=== PATIENT | male | born 1990 | race African-American/Black ===

== ENCOUNTER 2019-06-22 23:15 | Inpatient (IN) | payer BC, OTHER ==
[2019-06-23 00:56] LABS: ABS Eosinophils 0.1 10^3/ul (0-0.6); ABS Lymphocytes 2.5 10^3/ul (1.0-4.8); ABS Monocytes 0.9 10^3/ul (0-0.8); ABS Neutrophils 3.8 10^3/ul (1.5-7.7); Eosinophil % 1.7 %; Hematocrit 42 % (42-52); Hemoglobin 14.3 g/dL (14.0-18.0); Lymphocyte % 33.9 %; Mean Corpuscular HGB Conc 34 g/dL (31-36); Mean Corpuscular Hemoglobin 26 pg (27-31); Mean Corpuscular Volume 78 fL (80-94); Mean Platelet Volume 7.5 fL (7.4-10.4); Nucleated Red Blood Cells % 0.1; Platelet Count 294 10^3/uL (150-450); Red Blood Count 5.42 10^6 /uL (4.18-5.48); Red Cell Distribution Width 14 % (10-15); White Blood Count 7.5 10^3/uL (3.5-10.8)
[2019-06-23 01:14] LABS: ALT 21 U/L (7-52); AST 31 U/L (13-39); Albumin 3.9 g/dL (3.2-5.2); Albumin/Globulin Ratio 1.5 (1-3); Alkaline Phosphatase 73 U/L (34-104); Anion Gap 7 mmol/L (2-11); BUN/Creatinine Ratio 19.6 (8-20); Blood Urea Nitrogen 21 mg/dL (6-24); CO2 Carbon Dioxide 25 mmol/L (22-32); Chloride 105 mmol/L (101-111); EGFR African American 99.6 (>60); EGFR Non-African American 82.3 (>60); Globulin 2.6 g/dL (2-4); Glucose 82 mg/dL (70-100); Potassium 4.1 mmol/L (3.5-5.0); Sodium 137 mmol/L (135-145); Total Protein 6.5 g/dL (6.4-8.9)
--- NOTE | 2019-06-23 01:40 | ED ---
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 He states that he is having issues and a mental health crisis. He mentions that he has a history of undiagnosed depression and that he has slit his wrists in the past. Pain severity is rated 0/10. No aggravating or alleviating factors noted. He also denies fever. He uses EtOH and marijuana occasionally. He has no other medical Hx. - History Of Current Complaint Chief Complaint: EDSuicidal Time Seen by Provider: 06/22/19 23:24 Hx Obtained From: Patient Onset/Duration: Sudden Onset, Lasting Days, Still Present Timing: Constant Severity Initially: Moderate Severity Currently: Moderate Aggravating Factor(s): Nothing Alleviating Factor(s): Nothing Associated Signs And Symptoms: Positive: Negative - fever Has Suicidal: Reports: Thoughts. Denies: With A Plan - Allergies/Home Medications Allergies/Adverse Reactions: Allergies Allergy/AdvReac Type Severity Reaction Status Date / Time No Known Allergies Allergy Verified 08/25/14 11:12 PMH/Surg Hx/FS Hx/Imm Hx Endocrine/Hematology History: Denies: Hx Diabetes Cardiovascular History: Denies: Hx Hypercholesterolemia, Hx Hypertension Sensory History: Denies: Hx Legally Blind, Hx Deafness Opthamlomology History: Denies: Hx Legally Blind EENT History: Denies: Hx Deafness - Surgical History Surgical History: None Surgery Procedure, Year, and Place: none Infectious Disease History: No Infectious Disease History: Denies: Traveled Outside the [place] in Last 30 Days - Family History Known Family History: Negative: Renal Disease - Social History Alcohol Use: Occasionally Hx Substance Use: Yes Substance Use Type: Reports: Marijuana Smoking Status (MU): Never Smoked Tobacco Review of Systems Negative: Fever Psychological: Other - pos - SI All Other Systems Reviewed And Are Negative: Yes Physical Exam - Summary Physical Exam Summary: General: Well-developed, Well-nourished male. No acute distress. HEENT: Normocephalic, Atraumatic. Eyes: Conjuctiva normal, PERRL. Ears: TMs within normal limits. Nares: (-) discharge, (-) erythema. Oropharynx: Clear, mucous membranes moist, (-) exudates. Neck: Soft, FROM, (-) lymphadenopathy, (-) thyromegaly, (-) JVD. Cardiovascular: Normal sinus rhythm, (-) murmur. Lungs: Clear to auscultation bilaterally (-) wheezes, (-) rales, (-) rhonchi. Abdomen: Soft, non-tender, non-distended, (-) organomegaly, normal bowel sounds. Back: (-) CVA tenderness Extremities: No edema. Skin: Warm, dry, (-) rash. Neuro: Alert and oriented x3, no focal deficits. Psychiatric: Mood normal, affect flat, slowed speech. Triage Information Reviewed: Yes Vital Signs On Initial Exam: Initial Vitals Temp Pulse Resp BP Pulse Ox 98.5 F 54 18 127/95 98 06/22/19 23:16 06/22/19 23:16 06/22/19 23:16 06/22/19 23:16 06/22/19 23:16 Vital Signs Reviewed: Yes Diagnostics - Vital Signs Vital Signs Temp Pulse Resp BP Pulse Ox 06/22/19 23:16 98.5 F 54 18 127/95 98 - Laboratory Lab Results: Lab Results 06/23/19 06/23/19 Range/Units 00:51 00:51 WBC 7.5 (3.5-10.8) 10^3/uL RBC 5.42 (4.18-5.48) 10^6 /uL Hgb 14.3 (14.0-18.0) g/dL Hct 42 (42-52) % MCV 78 L (80-94) fL MCH 26 L (27-31) pg MCHC 34 (31-36) g/dL RDW 14 (10-15) % Plt Count 294 (150-450) 10^3/uL MPV 7.5 (7.4-10.4) fL Neut % (Auto) 51.3 % Lymph % (Auto) 33.9 % [place] % (Auto) 12.6 % Eos % (Auto) 1.7 % Baso % (Auto) 0.5 % Absolute Neuts (auto) 3.8 (1.5-7.7) 10^3/ul Absolute Lymphs (auto) 2.5 (1.0-4.8) 10^3/ul Absolute Monos (auto) 0.9 H (0-0.8) 10^3/ul Absolute Eos (auto) 0.1 (0-0.6) 10^3/ul Absolute Basos (auto) 0.0 (0-0.2) 10^3/ul Absolute Nucleated RBC 0.0 10^3/ul Nucleated RBC % 0.1 Sodium 137 (135-145) mmol/L Potassium 4.1 (3.5-5.0) mmol/L Chloride 105 (101-111) mmol/L Carbon Dioxide 25 (22-32) mmol/L Anion Gap 7 (2-11) mmol/L BUN 21 (6-24) mg/dL Creatinine 1.07 (0.67-1.17) mg/dL Est GFR ( Amer) 99.6 (>60) Est GFR (Non-Af Amer) 82.3 (>60) BUN/Creatinine Ratio 19.6 (8-20) Glucose 82 (70-100) mg/dL Calcium 9.0 (8.6-10.3) mg/dL Total Bilirubin 0.40 (0.2-1.0) mg/dL AST 31 (13-39) U/L ALT 21 (7-52) U/L Alkaline Phosphatase 73 (34-104) U/L Total Protein 6.5 (6.4-8.9) g/dL Albumin 3.9 (3.2-5.2) g/dL Globulin 2.6 (2-4) g/dL Albumin/Globulin Ratio 1.5 (1-3) TSH Pending Salicylates Pending Acetaminophen Pending Serum Alcohol Pending Result Diagrams: 06/23/19 00:51 06/23/19 00:51 Lab Statement: Any lab studies that have been ordered have been reviewed, and results considered in the medical decision making process. 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 No test or imaging results to report. Final Dx are depression and SI. Pt will be a sign out to Dr. Macdonald pending MHE and disposition. - Differential Dx/Clinical Impression Provider Diagnosis: Suicidal ideation, Depression Discharge ED - Sign-Out/Discharge Documenting (check all that apply): Sign-Out Patient Signing out patient TO: Melissa Macdonald Patient Received Moderate/Deep Sedation with Procedure: No - Discharge Plan Referrals: No Primary Care Phys,NOPCP [Primary Care Provider] - - Attestation Statements Document Initiated by Scribe: Yes Documenting Scribe: Jason Mercedes Provider For Whom Scribe is Documenting (Include Credential): Antonina May MD Scribe Attestation: I, Jason Mercedes, scribed for Antonina May MD on 06/23/19 at 0611. Scribe Documentation Reviewed: Yes Provider Attestation: The documentation as recorded by the scribe, Jason Mercedes accurately reflects the service I personally performed and the decisions made by me, Antonina May MD Status of Scribe Document: Viewed
[2019-06-23 01:48] LABS: Acetaminophen < 15 mcg/mL; Alcohol < 10 mg/dL (<10); Salicylate < 2.50 mg/dL (<30)
[2019-06-23 02:03] LABS: TSH (Thyroid Stimulating Horm) 1.79 mcIU/mL (0.34-5.60)
--- NOTE | 2019-06-23 07:13 | ED ---
Progress - Progress Note Progress Note: This pt is a sign out from Dr. May to Dr. Macdonald at shift change 0700 06/23 pending a MHE and disposition. - Consult/PCP Time Called: 00:45 Course/Dx - Course Course Of Treatment: This pt is a sign out from Dr. May to Dr. Macdonald at shift change 0700 06/23/19 pending a MHE and disposition. - Diagnoses Provider Diagnoses: Major depressive disorder, recurrent, unspecified - Provider Notifications Discussed Care Of Patient With: Lilian Felder Time Discussed With Above Provider: 14:16 Instructed by Provider To: Admit As Inpatient - involuntary Admit/Transition Orders Completed By ED Provider: Yes Discharge ED - Sign-Out/Discharge Documenting (check all that apply): Patient Departure - admitted to [facility] psych, involuntary Patient Received Moderate/Deep Sedation with Procedure: No - Discharge Plan Condition: Stable Disposition: PSYCHIATRIC FACILITY-[facility] Referrals: No Primary Care Phys,NOPCP [Primary Care Provider] - - Billing Disposition and Condition Condition: STABLE Disposition: Psychiatric Facility [facility] - Attestation Statements Document Initiated by Scribe: Yes Documenting Scribe: Gio Up Provider For Whom Scribe is Documenting (Include Credential): Melissa Macdonald MD Scribe Attestation: I, Gio Up, scribed for Melissa Macdonald MD on 06/23/19 at 1425. Scribe Documentation Reviewed: Yes Provider Attestation: The documentation as recorded by the Gio anders accurately reflects the service I personally performed and the decisions made by tx, Melissa Macdonald MD Status of Scribe Document: Viewed
[2019-06-23 15:51] LABS: Urine Appearance Cloudy; Urine Bilirubin Negative (Negative); Urine Blood Negative (Negative); Urine Color Yellow; Urine Glucose Negative (Negative); Urine Ketones Negative (Negative); Urine Nitrite Negative (Negative); Urine Protein Negative (Negative); Urine Specific Gravity 1.016 (1.010-1.030); Urine Urobilinogen Negative (Negative)
[2019-06-23 16:15] LABS: Urine Benzodiazepine Screen None Detected (None Detect); Urine Opiates Screen None Detected (None Detect)
[2019-06-23] MEDS ORDERED: Al Hydrox/Mg Hydrox/Simet LIQ* 30 ML UDC PO PRN (22:51)
[2019-06-23] MEDS ORDERED: Acetaminophen TAB* 325 MG PO PRN (22:51)
[2019-06-24 09:28] LABS: HDL Cholesterol 53.8 mg/dL
[2019-06-24] MEDS: Vitamin THERAPEUTIC TAB PO SCH (10:09)
--- NOTE | 2019-06-24 18:41 | HP ---
HISTORY AND PHYSICAL: DATE OF ADMISSION: 06/23/19 SUPERVISING PSYCHIATRIST: Dr. Yg Haynes.* (DICTATED BY ROHIT LIRIANO NP) JUSTIFICATION FOR ADMISSION: The patient presented to the emergency department with suicidal ideation and with plan to strangle self. The patient merits hospitalization for immediate safety and stabilization. CHIEF COMPLAINT: "I've been struggling with depression." HISTORY OF PRESENT ILLNESS: Nuvia is a 28-year-old male with one prior psychiatric hospitalization at [facility], who presented to the emergency department with depressed mood, suicidal ideation, and preparation for asphyxiation. The patient is domiciled, employed full-time and lives with his girlfriend of 3-1/2 years and her 3 children. The patient reports that he has been increasingly depressed and often has thoughts of suiciding. 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 He states that he was recently honest with his girlfriend that he has been watching pornography and masturbating daily. He states that he has regret afterwards. He reports that his partner refers to pornography as exploitation and does not agree with him using this media. The patient states that he masturbates once a day. Denies any other compulsions or paraphilic behaviors. He reports that he has been working over a 50-hour work week and that this is highly stressful. He states that juggling a career and being a part of the current family unit that he is in impacts his ability to sleep a full night. He states that he has been only sleeping 4 to 5 hours a night. He states that he has lots of aspirations and projects that he has not been able to attend to recently and endorses anhedonia. He denies change in appetite. He denies panic or eating disorder behaviors. The patient reports a recent stressor of finding out who his biological father was and reached out to him on Facebook as he found out that he had half-siblings. His biological father who from the patient's mother when the patient was 2 lives in [place] and did not accept the patient's Facebook friend request. The patient states that he and his father had minimal interaction and was dismissive of Nuvia's efforts to be in contact with his father or any other parts of his family. According to information from the emergency room, the patient's girlfriend was interviewed separately. She reports that his mother is very critical of him. Apparently, the patient's mother and girlfriend both each other as controlling. The patient reports recently taking Alexander wort along with B complex and magnesium vitamins. He is receptive to information that Hood wort is contraindicated for most psychiatric reasons including poor interactions with antidepressants. PAST PSYCHIATRIC HISTORY: The patient was hospitalized in January of 2011 while he was a student at [employer]. At that time, he presented with selective mutism and was found unresponsive by emergency services. He presented with somewhat of dissociative experiences. The patient was started on citalopram and referred to [facility] by [facility]. The patient saw Dr. Keven Bhatia and a psychologist at [employer]. The patient states he stopped citalopram after a couple months as he did not feel that he needed it. The patient went to a psychologist, Dr. Salina Espinoza, approximately 1 month ago. He states that he went for consultation as his girlfriend was concerned about autism spectrum disorder, but this was ruled out. The patient and his girlfriend are in couples counseling with [facility]. TRAUMA/ABUSE HISTORY: The patient denies history of abuse. He states that he and his mother are currently estranged because she does not approve of Chencho. The patient states that when he was younger his mother asked if he knew how to kiss girls and offered that he practice on her. The patient states he did not do so and this was never brought up again. The patient denies other trauma or abuse. SUBSTANCE USE HISTORY: The patient reports recent daily use of marijuana tincture made with 100% alcohol. He reports this was given to him by a friend approx 2 weeks ago. His urine drug screen is positive for cannabinoids. He denies any other substance use. PAST MEDICAL HISTORY: No active medical problems. PAST SURGICAL HISTORY: The patient denies surgical history. CURRENT MEDICATIONS: None. ALLERGIES: No known drug allergies. PRIMARY CARE PROVIDER: [facility]. FAMILY PSYCHIATRIC HISTORY: The patient reports his mother has neurotic tendencies and she has a boyfriend who is verbally condescending and demeaning. The patient denies knowledge of other psychiatric illnesses or suicide. SOCIAL HISTORY: The patient is the only child of his mother and father who when he was 2. He was raised by his mother. He was born in [place] and raised there until he was 6 when he and his mother moved to [place], [place]. He attended [employer] after high school graduation and graduated in 2011 with a BS in interdisciplinary studies, music and applied economics. The patient and his girlfriend who is 40 years old and has 3 children ages 13, 10 and 6 have been together for 3-1/2 years. 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 He identifies as heterosexual. He denies legal history or history. He reports exercising daily at the gym. REVIEW OF SYSTEMS: Constitutional: Negative. No fever, chills, or fatigue. ENT: Negative. Cardiovascular: Negative. Denies chest pain or palpitations. Respiratory: Negative. Denies shortness of breath or cough. Genitourinary: Negative. Musculoskeletal: Negative. Neurological: Negative. PHYSICAL EXAMINATION GENERAL: The patient is well appearing and well nourished. VITAL SIGNS: Height 5 feet 10 inches, weight 165 pounds. T 98.4, P 59, RR 14, O2 sat 99%, BP 120/82. HEENT: Head and face: Normal head and face inspection. Eyes: Positive EOMI. PERRLA. Conjunctivae clear. NECK: Supple. Full ROM. Trachea midline. RESPIRATORY: Lung sounds clear to auscultation, breath sounds present. CARDIOVASCULAR: Heart RRR. Pulses are symmetrical in both upper and lower extremities. MUSCULOSKELETAL: Normal strength. ROM intact. NEUROLOGICAL: Normal sensory and motor intact. Alert and oriented x3, with normal gait. Cerebellar function intact. SKIN: Warm and dry. Color reflects adequate perfusion. LABORATORY DATA: CBC generally unremarkable. Chemistry within normal limits. Hemoglobin A1c 5.2. Lipid panel within normal limits. TSH normal at 1.79. Urinalysis within normal limits. Toxicology negative for salicylates, acetaminophen, or alcohol. Urine drug screen positive for cannabinoids. MENTAL STATUS EXAM: Nuvia is a 28-year-old male with muscular build, who appears stated age. He is wearing blue hospital scrubs. ADLs are completed. He has ungroomed facial hair. He is alert and oriented x3. He is cooperative and pleasant. Eye contact is good. Speech is soft, articulate, and spontaneous. Concentration is good. Memory is 3/3. Mood is dysphoric with constricted affect. Mild psychomotor retardation noted. Thought process is circumstantial, logical. Thought content is positive for suicidal ideation. He denies HI or . The patient denies auditory or visual hallucinations. There are no perceptual disturbances noted. Insight and judgment are poor. Fund of knowledge is adequate. Intellect appears to be average by virtue of vocabulary and educational attainment. DIAGNOSES: 1. Unspecified depressive disorder. 2. Rule out adjustment disorder. ASSESSMENT: Nuvia is a 28-year-old male, domiciled, employed , with one prior psychiatric hospitalization, who presented to the emergency department with his girlfriend due to depressed mood and suicidal ideation. The patient has stressors regarding his employment obligations and relationship obligations. Both his mother and his romantic partner are pining for his loyalty. He reached out to his father via social media and was rejected recently. He reports guilt in regards to daily masturbation habit. He reports history of citalopram with untoward effects and is agreeable to trial escitalopram. PLAN: The patient is admitted to adult behavioral services unit on involuntary status. Code status is full. He is placed on 15-minute checks for safety. He is already participating in supportive milieu, individual sessions with staff, and psychoeducational groups. We will trial Lexapro and obtain collateral from the patient's current counselor and recent psychologist consultation. Estimated length of stay is 3 to 5 days. Discharge planning will include family involvement and above providers as well as referrals for individual counseling. ROHIT LIRIANO NP [id number]/CPS #: [id number] CLINT
[2019-06-24] MEDS ORDERED: Escitalopram * 5 MG TAB PO SCH (21:00)
[2019-06-25 10:34] VITALS: BP 139/71
--- NOTE | 2019-06-25 10:46 | DCNOTE ---
Subjective - Subjective Service Types: 56950 Hosp DC Day Mgmt simple under 30 min Discharge Date: 06/25/19 Subjective: Patient is reading AA literature upon approach. He states he plans to avoid substances and attributes recent odd thinking and behavior to using MJ tincture given to him by a friend. He states his friend visited last evening and Remanu told him he is no longer planning to utilize the tincture. Patient denies SI or passive wish. He reports feeling clausterphobic in the BSU. He reports readiness for discharge. telegraphic typewriter mechanic spoke with patient's girlfriend, Chencho at [phone]. She reports concern that patient has underlying bipolar disorder and that he is not forthcoming with information. We discussed likelihood that we are not seeing symptoms of bipolarity currently but formal diagnosing of bipolar could be ongoing. Marking Machine Tender shared that symptoms are likely related to anxiety, internal and interpersonal conflicts. VM left for PCP to inquire about continuing SSRI. Objective - General Observations Appearance: Well Groomed Stature: WNL Posture: WNL Eye Contact: Average Behavior/Activity: WNL - Interaction Observations Attitude Towards Examiner: Cooperative Stated Mood: Euthymic Affect: Full Speech Pattern/Tone: Clear, Appropriate, Normal Volume Thought Process: Coherent, Goal Directed Perception: WNL Thought Content: WNL Hallucination Type: None Delusion Type: None - Cognitive Function Orientation: A&O x 4 Level of Consciousness: Alert Cognition: WNL Estimated Intelligence: Normal Insight: WNL Judgment Within Normal Limits: Yes - Medication Compliance Cooperative with Inpatient Medication Regimen: Yes - Group Participation Participates in Group Activities: Yes DC Assessment - Assessment Clinical Impression: 28yo AA male, domiciled, employed who presented to ED with girlfriend due to depressed mood and suicidal ideation. The patient has stressors regarding his employment and relationship obligations. He has stabilized in this setting and tolerated new medication. Merits Inpatient Hospitalization: Yes Clear for Discharge: Adequate Clinical Respons, Acceptable Safety Profile Discharge Planning - Discharge Planning Discharge Plan: Outpatient Follow Up Outpatient Program: Private Clinician(s) Medications: Current Medications Escitalopram Oxalate (Lexapro *) 5 mg PO [facility]; Protocol Last Admin: 06/24/19 20:28 Dose: 5 mg Discharge Planning: Prescriptions provided for discharge [x] Yes [] No Follow up care details as per social work arrangements: [facility] LCS[facility] Patient response to discharge plan: [x] eager for discharge [x] agreeable with discharge plan [] ambivalent about discharge [] disagrees with discharge today
[2019-06-25] MEDS: Vitamin THERAPEUTIC TAB PO SCH (11:22)
--- NOTE | 2019-07-02 10:48 | DS ---
CC: Aki Pro LCSW; [facility] * DISCHARGE SUMMARY: DATE OF ADMISSION: 06/23/19 DATE OF DISCHARGE: 06/25/19 ATTENDING PROVIDER: Dr. Haynes * (DICTATED BY ROHIT LIRIANO NP) DIAGNOSES: 1. Unspecified depressive disorder. 2. Adjustment disorder. CONDITION AT TIME OF DISCHARGE: Improved. The patient is reading AA literature upon approach. He states he plans to avoid substances an attributes recent odd thinking and behavior to using a marijuana tincture given to him by a friend that was also made of 100 proof alcohol. He states his friend visited last evening and Nuvia told him he is no longer planning to utilize the tincture. Nuvia denies suicidal ideation or passive wish. He reports feeling claustrophobic in the [facility] and reports readiness for discharge. I spoke with his girlfriend Chencho, she reports concern that the patient has underlying bipolar disorder and that he is not forthcoming with this information. We discussed the likelihood that we are not seeing symptoms of bipolarity currently , but formal diagnosing of bipolar could be ongoing. We shared the symptoms are likely related to anxiety and interpersonal conflicts. The patient is discharged to home. MENTAL STATUS EXAM: Nuvia is a 28-year-old black male who appears stated age. He is well-groomed, cooperative, and pleasant. He is alert and oriented x3. Eye contact is good. Speech is soft, articulate, and spontaneous. Concentration is good. Memory 3/3. Mood euthymic with full range of affect. No abnormal psychomotor activity noted. Thought process is logical, goal directed and coherent. Thought content is negative for SI or passive wish. He denies HI or . He denies auditory or visual hallucinations and there are no perceptual disturbances noted. Insight and judgment are fair improved. He appears to have average intellect and fund of knowledge is adequate. Instructions given to the patient. A. Medications: Lexapro 5 mg p.o. q.h.s. B. Diet: Regular. C. Activity: Ambulation as tolerated. Tobacco cessation is declined by patient. There are no pending labs or diagnostic studies. D. Followup Care: The patient will follow up with therapist Aki Pro, as he has already engaged in couples counseling. He agrees to follow up with Aki in regards to individual counseling as well. The patient was referred back to his primary care provider at [facility]. This newspaper writer left a message with the office to inquire about continuing Lexapro. E. Substance use followup is not applicable. HOSPITAL COURSE: Part A: Reason for admission. The patient presented to the emergency department with suicidal ideation and a plan to strangle himself. History of Present Illness: Nuvia is a 28-year-old male with [place] [facility] [place] presented to the emergency department with depressed mood, suicidal ideation and preparation for succeeding himself. He is domiciled, employed full-time and lives with his girlfriend of 3-1/2 years and her 3 children. The patient reports he has been increasingly depressed and often has thoughts of suiciding. 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 He was recently honest with his girlfriend that he has been watching pornography and masturbating daily. He states he has regret afterwards. He reports that his partner refers to pornography as exploitation and does not agree with him using this medium. The patient states he masturbates once daily. He denies any other compulsions or paraphilic behaviors. He reports he has been working over a 50 hour work week and this is highly stressful. He states he has been sleeping only 4 to 5 hours a night. He states he has a lots of aspirations and projects that he has not been able to attend to recently and endorses anhedonia. He denies change in appetite. He denies panic or eating disorder behaviors. The patient reports a recent stressor of finding out who his biological father was and reach out to him on Facebook, as he found out that he has half siblings. His biological father who from the patient's mother when the patient was 2 , lives in [place] and did not accept the patient's accept Facebook friend request. The patient states that he and his father had minimal interaction and was dismissive of Nuvia's efforts to be in contact with his father or any parts of the family. According to information from the emergency room, the patient's girlfriend was interviewed separately. She reports that his mother is very critical of them. Apparently, the mother and girlfriend both view each other as controlling. The patient reports recently taking Hood's Wort along with B complex and magnesium vitamins. He is receptive to information that Hood's Wort is contraindicated for most psychiatric reasons including poor interactions with antidepressive. Part B. Psychiatric treatment rendered: The patient was admitted onto the adult behavioral services unit on involuntary status. Code status is full. He was placed on 15 minute checks for safety. He participated in supportive milieu individual sessions with staff and psychoeducational groups. He agreed to a trial of escitalopram, which he tolerated well with no untoward effects. He was decreased to 30 minute observation and allowed staff pass. He was safe and in behavioral control. He denied suicidal ideation. As stated above, he reported recent use of a marijuana tincture that may have attributed to bizarre thinking and behaviors. He and his girlfriend are encouraged to continue with couples counseling to discuss relationship conflicts due to obligations to treat in least restrictive setting, discharge was agreed upon by treatment team. The patient was observed to have rigid thinking patterns. This may be related to obsessive compulsive personality disorder ongoing diagnosis. Clarification is encouraged. The patient reports readiness to discharge. He denies urges for self-harm or suicidal ideation. He has been safe on all checks and in behavioral control. He reports readiness to utilize hospitalization again should symptoms worsen. ROHIT LIRIANO NP [id number]/[facility] #: [id number] [facility]
== END 2019-06-25 17:35 | disposition home or self-care (01) | DRG 881 ==
LOC: ED 23:15 → BSU 06-23 15:45
PROVIDERS: ADMIT Psychiatry & Neurology Psychiatry; ATTEND Psychiatry & Neurology Psychiatry
DX: F32.9 Major depressive disorder, single episode, unspecified (principal); R45.851 Suicidal ideations; F40.240 Claustrophobia; F41.9 Anxiety disorder, unspecified; Z72.89 Other problems related to lifestyle
CPT/HCPCS: 36415; 80053; 80061; 80307; 80320; 80329; 81003; 83036; 84443; 85025; 99222; 99238; 99285; A9270-GY; G0480